=== PATIENT | male | born 1975 | race African-American/Black ===

== ENCOUNTER 2018-02-13 19:14 | Emergency (ER) | payer MEDICAID ==
[~2018-02-13] VITALS: Ht 180.3 cm; Wt 109.1 kg
[2018-02-13] MEDS ORDERED: CloNIDine HCL 0.1 MG TABLET PO ONE ×2 (20:30→22:00)
[2018-02-13 21:56] VITALS: BP 138/80
== END 2018-02-13 22:12 | disposition home or self-care (01) ==
LOC: EMS 19:15
DX: S80.11XA Contusion of right lower leg, initial encounter (principal); S80.212A Abrasion, left knee, initial encounter; R03.0 Elevated blood-pressure reading, without diagnosis of hypertension; F10.20 Alcohol dependence, uncomplicated; Z02.89 Encounter for other administrative examinations; W22.8XXA Striking against or struck by other objects, initial encounter; Y93.89 Activity, other specified; Y92.89 Other specified places as the place of occurrence of the external cause; Y99.8 Other external cause status
CPT/HCPCS: 99283; 99284

== ENCOUNTER 2018-08-20 12:30 | Emergency (ER) | payer MEDICAID, OTHER ==
[~2018-08-20] VITALS: Ht 180.3 cm; Wt 100.0 kg
[2018-08-20] MEDS ORDERED: KETOROLAC TROMETHAMINE 10 MG TABLET PO ONE (16:45)
[2018-08-20 17:31] VITALS: BP 143/89
== END 2018-08-20 18:09 | disposition home or self-care (01) ==
LOC: EMS 12:30
DX: S80.12XA Contusion of left lower leg, initial encounter (principal); F17.210 Nicotine dependence, cigarettes, uncomplicated; W18.39XA Other fall on same level, initial encounter; Y93.89 Activity, other specified; Y92.89 Other specified places as the place of occurrence of the external cause; Y99.8 Other external cause status
CPT/HCPCS: 99284

== ENCOUNTER 2018-09-06 19:18 | Emergency (ER) | payer OTHER | END 2018-09-06 19:28 | disposition left against medical advice (07) | LOC: EMS 19:18 | DX: S60.511A Abrasion of right hand, initial encounter (principal); Z53.21 Procedure and treatment not carried out due to patient leaving prior to being seen by health care provider; X58.XXXA Exposure to other specified factors, initial encounter; Y93.89 Activity, other specified; Y92.89 Other specified places as the place of occurrence of the external cause; Y99.8 Other external cause status ==

== ENCOUNTER 2019-08-30 18:57 | Emergency (ER) | payer OTHER ==
[~2019-08-30] VITALS: Ht 180.3 cm; Wt 109.1 kg
[2019-08-30] MEDS ORDERED: HYDR-4455 PO (19:18)
[2019-08-30] MEDS ORDERED: GABA-531 PO (19:18)
[2019-08-30] MEDS ORDERED: AMLO5TAB9 PO (19:18)
[2019-08-30] MEDS ORDERED: SODIUM CHLORIDE 0.9% 1,000 ML IV ONE (19:29)
[2019-08-30 19:46] LABS: BASOPHILS % (AUTO) 1.1 % (0.0-2.0); EOSINOPHILS % (AUTO) 1.6 % (1.0-6.0); HEMATOCRIT 35.5 % (41-53); HEMOGLOBIN 11.5 g/dL (13.5-17.5); LYMPHOCYTES # (AUTO) 2.9 K/uL (1.0-4.8); LYMPHOCYTES % (AUTO) 31.2 % (22.0-44.0); MEAN CORPUSCULAR HEMOGLOBIN 28.9 pg (26.0-34.0); MEAN CORPUSCULAR HGB CONC 32.5 G/dL (31.0-37.0); MEAN CORPUSCULAR VOLUME 89 fL (80-100); MONOCYTES # (AUTO) 0.8 K/uL (0.1-1.0); MONOCYTES % (AUTO) 9.1 % (2.0-9.0); NEUTROPHILS # (AUTO) 5.3 K/uL (1.8-7.7); PLATELET COUNT (AUTO) 272 K/uL (150-450); RED BLOOD CELL COUNT(AUTO) 3.99 MIL/uL (4.50-5.90); RED CELL DISTRIBUTION WIDTH 17.4 % (11.5-14.5)
[2019-08-30 20:09] LABS: ANION GAP 19 mmol/L (8-16); CALCIUM, TOTAL 8.9 mg/dL (8.8-10.5); CARBON DIOXIDE 19 mmol/L (22-29); CHLORIDE 100 mmol/L (98-107); CREATININE 1.24 mg/dL (0.60-1.30); GLOMERULAR FILTR. RATE CALC > 60 mL/min (>60); GLUCOSE,RANDOM 111 mg/dL (70-110); POTASSIUM 3.8 mmol/L (3.5-5.1); SODIUM SERUM 138 mmol/L (136-145); UREA NITROGEN, BLOOD 13 mg/dL (7-18)
[2019-08-30 20:15] LABS: ALANINE AMINOTRANSFERASE 34 U/L (12-78); ALBUMIN 3.9 g/dL (3.4-5.0); ALKALINE PHOSPHATASE 176 U/L (46-116); ASPARTATE AMINOTRANSFERASE 37 U/L (15-37); BILIRUBIN,TOTAL 0.6 mg/dL (0.1-1.0); TOTAL PROTEIN, SERUM 8.2 g/dL (6.4-8.2)
[2019-08-30 20:24] LABS: APPEARANCE,URINE CLEAR (CLEAR); BILIRUBIN,URINE NEGATIVE (NEGATIVE); GLUCOSE, URINE (UA) NEGATIVE (NEGATIVE); KETONES,URINE NEGATIVE (NEGATIVE); LEUKOCYTE ESTERASE ,URINE NEGATIVE (NEGATIVE); NITRATE,URINE NEGATIVE (NEGATIVE); OCCULT BLOOD,URINE NEGATIVE (NEGATIVE); PROTEIN,URINE TRACE (NEGATIVE); UROBILINOGEN,URINE 0.2 mg/dL (<=1.0)
[2019-08-30 20:30] LABS: AMPHET/METH SCREEN,URINE NEGATIVE (NEGATIVE); BARBITURATE SCREEN, URINE NEGATIVE (NEGATIVE); BENZODIAZEPINES SCREEN,URINE NEGATIVE (NEGATIVE); CANNABINOID SCREEN,URINE NEGATIVE (NEGATIVE); COCAINE SCREEN,URINE NEGATIVE (NEGATIVE); METHADONE SCREEN, URINE NEGATIVE (NEGATIVE); OPIATE SCREEN,URINE NEGATIVE (NEGATIVE)
[2019-08-30 20:32] LABS: PHENCYCLIDINE SCREEN,URINE POSITIVE (NEGATIVE)
[2019-08-31] MEDS ORDERED: ACETAMINOPHEN 500 MG TABLET PO ONE (02:00)
[2019-08-31 03:15] VITALS: BP 117/56
== END 2019-08-31 03:53 | disposition home or self-care (01) ==
LOC: EMS 18:58
DX: F10.129 Alcohol abuse with intoxication, unspecified (principal); F16.10 Hallucinogen abuse, uncomplicated; R41.82 Altered mental status, unspecified; Z79.899 Other long term (current) drug therapy; Y90.6 Blood alcohol level of 120-199 mg/100 ml
CPT/HCPCS: 36415; 80053; 80307; 81003; 85025; 96360; 99285; G0480; J7030

== ENCOUNTER 2019-11-16 16:43 | Emergency (ER) | payer OTHER ==
[~2019-11-16] VITALS: Ht 180.3 cm; Wt 104.5 kg
[~2019-11-16 16:43] MED LIST: AMLO5TAB9 PO; GABA-531 PO; HYDR-4455 PO
[2019-11-16] MEDS ORDERED: CloNIDine HCL 0.2 MG TABLET PO ONE (18:45)
[2019-11-16] MEDS ORDERED: NAPR-1025 PO (19:01)
[2019-11-16] MEDS ORDERED: LOSA25TA41 PO (19:01)
[2019-11-16 19:39] VITALS: BP 159/89
== END 2019-11-16 19:41 | disposition home or self-care (01) ==
LOC: EMS 16:46
DX: S50.811A Abrasion of right forearm, initial encounter (principal); I10 Essential (primary) hypertension; F16.10 Hallucinogen abuse, uncomplicated; Z79.899 Other long term (current) drug therapy; W25.XXXA Contact with sharp glass, initial encounter; Y93.89 Activity, other specified; Y92.098 Other place in other non-institutional residence as the place of occurrence of the external cause; Y99.8 Other external cause status

== ENCOUNTER 2024-02-14 12:40 | Emergency (ER) | payer OTHER ==
[~2024-02-14] VITALS: Ht 177.8 cm; Wt 115.9 kg
[~2024-02-14 12:40] MED LIST changes: +AMLO-257 PO; -AMLO5TAB9 PO; +GABA-1181 PO; -GABA-531 PO; +LOSA-381 PO; +NAPR-1025 PO
[2024-02-14] MEDS ORDERED: ATOR40TA71 PO (12:50)
[2024-02-14] MEDS ORDERED: LOSA100T59 PO (12:50)
[2024-02-14] MEDS ORDERED: ASPI-1444 PO (12:50)
[2024-02-14] MEDS ORDERED: GABA-534 PO (12:50)
[2024-02-14] MEDS ORDERED: TADA20TA43 PO (12:50)
[2024-02-14] MEDS ORDERED: FENO134C21 PO (12:50)
[2024-02-14] MEDS ORDERED: AMLO10TA55 PO (12:50)
[2024-02-14] MEDS ORDERED: CHLO50TA PO (12:50)
[2024-02-14] MEDS: HYDROCODONE/ACETAMINOPHEN 5-325 MG TABLET PO ONE (17:04)
[2024-02-14 17:43] VITALS: BP 142/77; PULSE 104; RESP 18; TEMP 98.3
== END 2024-02-14 18:14 | disposition home or self-care (01) ==
LOC: EMS 13:38
DX: S82.102A Unspecified fracture of upper end of left tibia, initial encounter for closed fracture (principal); E78.00 Pure hypercholesterolemia, unspecified; I10 Essential (primary) hypertension; Z98.890 Other specified postprocedural states; W18.42XA Slipping, tripping and stumbling without falling due to stepping into hole or opening, initial encounter; Y93.89 Activity, other specified; Y92.89 Other specified places as the place of occurrence of the external cause; Y99.8 Other external cause status
CPT/HCPCS: 29515; 99283